=== PATIENT | female | born 2000 | race African-American/Black ===

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

== ENCOUNTER 2020-04-22 18:03 | Inpatient (IN) ==
[2020-04-22 18:36] LABS: Urine Appearance Clear; Urine Bilirubin Negative (Negative); Urine Blood Negative (Negative); Urine Color Yellow; Urine Glucose Negative (Negative); Urine Ketones Trace (Negative); Urine Nitrite Negative (Negative); Urine Protein Negative (Negative); Urine Specific Gravity 1.011 (1.010-1.030); Urine Urobilinogen Negative (Negative)
[2020-04-22 19:00] LABS: ABS Lymphocytes 1.9 10^3/ul (1.0-4.8); ABS Monocytes 0.4 10^3/ul (0-0.8); ABS Neutrophils 3.9 10^3/ul (1.5-7.7); Eosinophil % 0.3 %; Hematocrit 38 % (35-47); Hemoglobin 12.5 g/dL (12.0-16.0); Mean Corpuscular HGB Conc 33 g/dL (31-36); Mean Corpuscular Hemoglobin 30 pg (27-31); Mean Corpuscular Volume 89 fL (80-97); Mean Platelet Volume 7.1 fL (7.4-10.4); Platelet Count 242 10^3/uL (150-450); Red Blood Count 4.23 10^6 /uL (3.70-4.87); Red Cell Distribution Width 15 % (10-15); White Blood Count 6.3 10^3/uL (3.5-10.8)
[2020-04-22 19:05] LABS: Urine Benzodiazepine Screen None Detected (None Detect); Urine Cannabinoids Screen None Detected (None Detect); Urine Opiates Screen None Detected (None Detect)
[2020-04-22 19:15] LABS: ALT 10 U/L (7-52); AST 20 U/L (13-39); Albumin 4.6 g/dL (3.2-5.2); Albumin/Globulin Ratio 1.6 (1-3); Alkaline Phosphatase 49 U/L (34-104); Anion Gap 7 mmol/L (2-11); BUN/Creatinine Ratio 11.6 (8-20); Blood Urea Nitrogen 11 mg/dL (6-24); CO2 Carbon Dioxide 29 mmol/L (22-32); Calcium 10.7 mg/dL (8.6-10.3); Chloride 101 mmol/L (101-111); EGFR African American 90.7 (>60); Globulin 2.8 g/dL (2-4); Glucose 86 mg/dL (70-100); Potassium 4.2 mmol/L (3.5-5.0); Sodium 137 mmol/L (135-145); Total Protein 7.4 g/dL (6.4-8.9)
[2020-04-22 19:30] LABS: Alcohol, S < 10 mg/dL (<10); Salicylate < 2.50 mg/dL (<30)
[2020-04-22 19:36] LABS: Acetaminophen < 15 mcg/mL
[2020-04-22 19:43] LABS: TSH Ultra Thyroid Stim Horm 0.59 mcIU/mL (0.34-5.60)
[2020-04-22] MEDS ORDERED: Al Hydrox/Mg Hydrox/Simet LIQ 30 ML UDC PO PRN (23:26)
[2020-04-23 09:13] LABS: HCG Pregnancy < 0.60 mIU/mL
[2020-04-23] MEDS: NORETHINDR PO SCH (10:03)
[2020-04-23] MEDS: Vitamin THERAPEUTIC TAB PO SCH (10:03)
[2020-04-23] MEDS: ETH ESTRADIOL PO SCH (10:03)
[2020-04-23] MEDS ORDERED: Polyethylene Glycol 3350 17 GM PACKET PO ONE (20:50)
[2020-04-23] MEDS ORDERED: Polyethylene Glycol 3350 17 GM PACKET PO PRN (21:23)
[2020-04-24] MEDS: Vitamin THERAPEUTIC TAB PO SCH (12:18)
[2020-04-24] MEDS: ETH ESTRADIOL PO SCH (12:18)
[2020-04-24] MEDS: NORETHINDR PO SCH (12:18)
[2020-04-25 07:35] LABS: HDL Cholesterol 69.2 mg/dL
[2020-04-25 08:10] VITALS: BP 107/73
[2020-04-25] MEDS: Vitamin THERAPEUTIC TAB PO SCH (08:36)
[2020-04-25] MEDS: NORETHINDR PO SCH (10:52)
[2020-04-25] MEDS: ETH ESTRADIOL PO SCH (10:52)
== END 2020-04-25 10:50 | disposition home or self-care (01) | DRG 751 ==
LOC: ED 18:03 → BSU 23:00
PROVIDERS: ADMIT Psychiatry & Neurology Psychiatry; ATTEND Psychiatry & Neurology Psychiatry